=== PATIENT | male | born 1990 | race African-American/Black ===

== ENCOUNTER 2017-01-21 18:11 | Emergency (ER) | payer BC ==
[~2017-01-21] VITALS: Wt 74.0 kg
[~2017-01-21 18:11] MED LIST: NAPR-260 PO
--- NOTE | 2017-01-21 19:08 | ERD ---
ER Documentation Chief Complaint Date/Time DATE: 01/21/17 TIME: 19:03 Chief Complaint LEFT KNEE PAIN NON TRAUMATIC WITH NO DEFORMITY. NO SWELLING HPI This pleasant 26-year-old male patient reports left knee pain with sudden onset starting last week. Patient reports that he was at [employer] that he had been doing a large amount of walking and had been taking stairs instead of escalators. Patient states pain started at that time and has worsened over the last week. Patient reports pain is triggered by immobility, difficulty bending after the knee has been straight. Pain with walking down stairs. Patient has taken a nonsteroidal anti-inflammatory medication that he had at home from a prior complaint, patient is not sure which medication it was in that he has not taken anything today. Pain is described as severe when it hurts, pain is intermittent, denies any pain at this time. Patient denies swelling of his knee , fever, or chills. ROS All systems reviewed and are negative except as per history of present illness. Medications Home Meds Active Scripts Naproxen* (Naprosyn*) 500 Mg Tablet, 500 MG PO BID, #20 TAB Prov:Eliza Jacobsen PA-C 07/15/16 Allergies Allergies: Coded Allergies: No Known Allergy (Unverified , 07/15/16) PMhx/Soc Medical and Surgical Hx: pt denies Medical Hx, pt denies Surgical Hx Hx Miscellaneous Medical Probl: Yes (gerd) Hx Alcohol Use: Yes (occassional) Hx Substance Use: Yes (marijuana) Hx Tobacco Use: No Smoking Status: Never smoker Physical Exam Vitals Vital Signs Date Time Temp Pulse Resp B/P Pulse Ox O2 Delivery O2 Flow Rate FiO2 01/21/17 18:14 98.0 59 20 114/54 98 Vitals stable, triage notes reviewed Physical Exam Const: Well-appearing, in no acute distress Head: Atraumatic Eyes: Normal Conjunctiva, PERRLA, EOMI ENT: Normal External Ears, Nose and Mouth. Neck: Resp: Chest rises and falls symmetrically, clear to auscultation bilaterally, no respiratory distress Cardio: Abd: Skin: Back: Ext: Lower Extremity -left knee Skin: No laceration Compartments: Soft Motor: Full active range of motion hip/knee/ankle/foot, negative anterior drawer, negative Meli's test. Patellar pain with loading weight Sensation: intact to light touch anterior, lateral, inferior and posterior surfaces. Bones: Nontender pelvis/knee/proximal tibia/ malleoli/foot Joints: No effusion or laxity Pulses/Perfusion: 2+ DP, Capillary refill < 2 seconds Neur: Awake and alert Psych: Normal Mood and Affect Results 24 hrs Current Medications Medications (Trade) Dose Ordered Sig/Filomena Route PRN Reason Start Time Stop Time Status Last Admin Dose Admin Naproxen (Naprosyn) 500 mg ONCE ONCE PO 01/21/17 19:30 01/21/17 19:31 DC 01/21/17 19:19 Procedures/MDM PROCEDURE: XR Knee. CLINICAL INDICATION: Left knee pain. TECHNIQUE: Three views of the left knee. COMPARISON: None available FINDINGS: There is no acute fracture or dislocation. The joint spaces are preserved. No joint effusion is identified. IMPRESSION: 1. No acute fracture or dislocation of the left knee. .Tom Ferrara MD, MD Date Time Electronically viewed and signed by .Tom Ferrara MD, MD on 01/21/2017 20:17 This pleasant 26-year-old male patient presenting to emergency department today for complaint of left knee pain after activity. Patient is reporting pain with front loading weight or extension. Dislocation and fracture is not suspected. X-ray was obtained to rule out effusion. X-ray findings as followed; there is no fracture or dislocation. The joint spaces are preserved. No joint effusion is identified. Septic joint is not likely. And will not be evaluated at this time. Patient is treated with Naprosyn in emergency department. Will be discharged with a Lux wrap and Naprosyn, rice therapy, return to emergency department for swelling, pain, redness or warmth to the knee. I feel the patient is stable for discharge at this time. Outpatient management by primary care physician I have discussed results, examination findings, the treatment plan with the patient and family present prior to discharge. Indications for emergent reevaluation, side effects of medication were also discussed. All questions were answered. Patient verbalizes understanding and agrees with plan of care. Departure Diagnosis: Primary Impression: Knee pain Laterality: left Chronicity: acute Qualified Code: M25.562 - Acute pain of left knee Condition: Good Patient Instructions: Knee Pain, Uncertain Cause Additional Instructions: Thank you for for coming to [facility] for your care today. Please ask your nurse or provider if you have questions about your care today and do not leave until all your questions have been answered. Please use any medications given as directed and follow-up with your doctor (or the doctor you were referred to) in the next 2-3 days. If you do not have a primary care doctor you may follow up at the [facility] [place] (listed below). You may also use motrin and tylenol as needed for fever and/or pain unless instructed otherwise by your provider or nurse. Indications for more urgent follow-up have been discussed, but you may return to the Emergency Department at ANY time for any worrisome or worsening symptoms. If you have abdominal pain, please know that no test or exam you received is perfect and you should follow up within 8 hours for continued pain. If you had any imaging studies today, such as an X-Ray or CT Scan, these studies will be reviewed later by a radiologist. You will be called if there are important findings that were not identified today, so make sure the contact information you provided at registration is correct. If you received any narcotic pain control medicine today, such as Vicodin, Morphine or Dilaudid, your coordination and judgment may be affected for a number of hours. Please do not drive or operate heavy machinery, and you may want someone to assist you at home. If you were given a prescription for narcotic medication, be aware that it is very addictive- use sparingly and only if necessary. VAL GIPSON January 21, 2017 19:08
[2017-01-21] MEDS ORDERED: NAPROXEN 500 MG TAB PO ONE (19:30)
--- NOTE | 2017-01-21 20:17 | RADRPT ---
PROCEDURE: XR Knee. CLINICAL INDICATION: Left knee pain. TECHNIQUE: Three views of the left knee. COMPARISON: None available FINDINGS: There is no acute fracture or dislocation. The joint spaces are preserved. No joint effusion is id entified. IMPRESSION: 1. No acute fracture or dislocation of the left knee. RPTAT: HTAR .Tom Ferrara MD, MD Date Time Electronically viewed and signed by .Tom Ferrara MD, on 01/21/2017 20:17 .R/
[2017-01-21] MEDS ORDERED: NAPR-260 PO (20:25)
== END 2017-01-21 22:17 | disposition left against medical advice (07) ==
LOC: FTE 18:11
DX: M25.562 Pain in left knee (principal)
CPT/HCPCS: 73562; Z7610

== ENCOUNTER 2018-07-27 03:43 | Emergency (ER) | END 2018-07-27 05:25 | disposition home or self-care (01) ==